=== PATIENT | male | born 1980 | race Caucasian/White ===

== ENCOUNTER 2017-12-19 21:27 | Emergency (ER) | payer BC ==
[2017-12-19 22:39] LABS: Protime INR 1.01
[2017-12-19 22:42] LABS: Absolute Lymphocytes (CBC) 3.2 K/uL (0.7-4.9); Absolute Monocytes 0.6 K/uL (0.1-1.3); Absolute Neutrophil 5.4 K/uL (1.8-8.0); Basophils % 1.7 % (0-1.3); Eosinophils % 1.8 % (0-4.4); Hematocrit 45.7 % (39.6-49.0); Lymphocytes % 33.6 % (15.3-44.8); MCH 28.4 pg (27.0-35.0); MCV 83.1 fL (80-100); MPV 10.1 fL (7.6-11.3); Monocytes % 6.3 % (3.3-12.3); RBC Red Blood Cell Count 5.49 M/uL (4.33-5.43)
[2017-12-19 22:50] LABS: Potassium 3.5 mEq/L (3.6-5.0)
[2017-12-19 22:56] LABS: Albumin 4.3 g/dL (3.2-5.5); Bilirubin Direct 0.2 mg/dL (0-0.2); Bilirubin Total 1.3 mg/dL (0.3-1.2)
[2017-12-19 22:57] LABS: CKMB Creatine Kinase MB 0.9 ng/ml (0.3-4.0)
--- NOTE | 2017-12-19 22:57 | RAD REPORT ---
EXAM DESCRIPTION: RAD - Chest Single View - 12/19/2017 10:50 pm CLINICAL HISTORY: Chest pain. COMPARISON: 11/19/2009 FINDINGS: Portable technique limits examination quality. The lungs are grossly clear. The heart is normal in size. No displaced fractures. IMPRESSION: No acute intrathoracic process suspected.
[2017-12-19 23:01] LABS: Blood Morphology Comment NOT SEEN (NOT SEEN); Platelet Estimate ADEQ; Urine White Blood Cell Casts OK
--- NOTE | 2017-12-19 23:38 | ER ---
Nurse's Notes [facility] Name: Thong Camacho Age: 37 yrs Sex: Male : 1980 Arrival Date: 12/19/2017 Time: 21:31 Bed 16 Private MD: Tico Nguyen R Diagnosis: Other chest pain Presentation: 12/19 21:34 Presenting complaint: Patient states: Episode of chest discomfort while roller skating aj tonight at 1930. Patient also reports tingling to right side of face. Transition of care: patient was not received from another setting of care. Onset of symptoms was December 19, 2017. Risk Assessment: Do you want to hurt yourself or someone else? Patient reports no desire to harm self or others. Care prior to arrival: None. 21:34 Method Of Arrival: Ambulatory 21:34 Acuity: MANUEL 3 22:39 Initial Sepsis Screen: Does the patient meet any 2 criteria? No. Patient's initial bs1 sepsis screen is negative. Does the patient have a suspected source of infection? No. Patient's initial sepsis screen is negative. Triage Assessment: 21:35 General: Appears in no apparent distress. comfortable, Behavior is calm, cooperative, aj appropriate for age. Pain: Complains of pain in chest. Neuro: Level of Consciousness is awake, alert, obeys commands, Oriented to person, place, time, situation, Appropriate for age. Cardiovascular: Reports chest pain, shortness of breath. Cardiovascular: Capillary refill < 3 seconds in bilateral fingers Patient's skin is warm and dry. Respiratory: Airway is patent Respiratory effort is even, unlabored, Respiratory pattern is regular, symmetrical. Derm: Skin is intact, is healthy with good turgor, Skin is pink, warm \T\ dry. normal. Historical: - Allergies: 21:35 tramadol; aj - Home Meds: 21:35 vancomycin oral oral [Active]; aj - PMHx: 21:35 C-diff; aj - PSHx: 21:35 Cholecystectomy; Hernia repair; aj - Immunization history:: Adult Immunizations up to date. - Social history:: Smoking status: Patient/guardian denies using tobacco. - Ebola Screening: : Patient negative for fever greater than or equal to 101.5 degrees Fahrenheit, and additional compatible Ebola Virus Disease symptoms Patient denies exposure to infectious person Patient denies travel to an Ebola-affected area in the 21 days before illness onset No symptoms or risks identified at this time. Screenin:38 Abuse screen: Denies threats or abuse. Denies injuries from another. Nutritional bs1 screening: No deficits noted. Tuberculosis screening: No symptoms or risk factors identified. Fall Risk None identified. Assessment: 22:00 General: Appears in no apparent distress. uncomfortable. Pain: Complains of pain in bs1 left side of chest Pain does not radiate. Pain currently is 8 out of 10 on a pain scale. Quality of pain is described as stabbing, Pain began suddenly. Neuro: Level of Consciousness is awake, alert, obeys commands, Oriented to person, place, time, situation, Appropriate for age Schedule Checker are equal bilaterally. Neuro: Reports dizziness, reports tingling to face. Cardiovascular: Reports chest pain, Denies shortness of breath, Heart tones S1 S2 present Capillary refill < 3 seconds Patient's skin is warm and dry. Respiratory: Airway is patent Trachea midline Respiratory effort is even, unlabored, Respiratory pattern is regular, symmetrical, Breath sounds are clear bilaterally. GI: No signs and/or symptoms were reported involving the gastrointestinal system. : No signs and/or symptoms were reported regarding the genitourinary system. EENT: No signs and/or symptoms were reported regarding the EENT system. Derm: Skin is intact, Skin is pink, warm \T\ dry. Musculoskeletal: Circulation, motion, and sensation intact. Capillary refill < 3 seconds, Range of motion: intact in all extremities. 23:30 Reassessment: Patient appears in no apparent distress at this time. Patient and/or bs1 family updated on plan of care and expected duration. Pain level reassessed. Patient is alert, oriented x 3, equal unlabored respirations, skin warm/dry/pink. No further needs, updated on POC and follow up Patient states feeling better. Patient states symptoms have improved. Vital Signs: 21:35 BP 140 / 104; Pulse 82; Resp 19; Temp 97.8; Pulse Ox 98% on R/A; Weight 90.72 kg; aj Height 5 ft. 11 in. (180.34 cm); 22:30 BP 105 / 69; Pulse 67; Resp 16; Pulse Ox 99% on R/A; bs1 23:30 BP 109 / 71; Pulse 62; Resp 16; Temp 98(O); Pulse Ox 97% on R/A; Pain 0/10; bs1 21:35 Body Mass Index 27.89 (90.72 kg, 180.34 cm) ED Course: 21:31 Patient arrived in ED. es 21:32 Tico Nguyen MD is Private Physician. es 21:35 Triage completed. aj 21:35 Arm band placed on left wrist. Patient placed in an exam room. aj 22:00 Inserted saline lock: 20 gauge in left antecubital area, using aseptic technique. bs1 Patient maintains SpO2 saturation greater than 95% on room air. 22:01 Nhung Balderrama, RN is Primary Nurse. bs1 22:18 Nikolay Chawla PA is PHCP. [facility] 22:19 Evan Campbell MD is Attending Physician. [facility] 22:38 Patient has correct armband on for positive identification. Bed in low position. Call bs1 light in reach. Side rails up X 1. traffic monitor specialist on. Pulse ox on. NIBP on. 22:44 X-ray completed. Portable x-ray completed in exam room. Patient tolerated procedure kc2 well. 22:46 XRAY Chest (1 view) In Process Unspecified. EDMS 23:37 Tico Nguyen MD is Referral Physician. [facility] 23:56 No provider procedures requiring assistance completed. IV discontinued, bleeding bs1 controlled, No redness/swelling at site. Pressure dressing applied. Administered Medications: No medications were administered Outcome: 23:37 Discharge ordered by MD. [facility] 23:56 Discharged to home ambulatory, with significant other. bs1 23:56 Condition: stable 23:56 Discharge instructions given to patient, Instructed on discharge instructions, follow up and referral plans. Demonstrated understanding of instructions, follow-up care. 23:58 Patient left the ED. bs1 Signatures: Dispatcher [employer] Lis Nam, RN Nikolay Montez PA PA jmm Salyer, Edna es Carr, Kelsie kc2 Nhung Balderrama, BARRIE RN bs1
--- NOTE | 2017-12-19 23:38 | EDPHYS ---
Physician Documentation [facility] Name: Thong Camacho Age: 37 yrs Sex: Male : 1980 Arrival Date: 12/19/2017 Time: 21:31 Bed 16 Private MD: Tico Nguyen R ED Physician Evan Campbell HPI: 12/19 22:38 This 37 yrs old Male presents to ER via Ambulatory with complaints of Chest jmm Pain, Dizziness, Face pam. 22:38 Onset: The symptoms/episode began/occurred gradually, just prior to arrival. This is a jmm 37 year old male with no chronic medical conditions that presents to the ED with chest pain beginning while roller skating. Patient denies shortness of breath. Denies hx of CAD. . Historical: - Allergies: 21:35 tramadol; aj - Home Meds: 21:35 vancomycin oral oral [Active]; aj - PMHx: 21:35 C-diff; aj - PSHx: 21:35 Cholecystectomy; Hernia repair; aj - Immunization history:: Adult Immunizations up to date. - Social history:: Smoking status: Patient/guardian denies using tobacco. - Ebola Screening: : Patient negative for fever greater than or equal to 101.5 degrees Fahrenheit, and additional compatible Ebola Virus Disease symptoms Patient denies exposure to infectious person Patient denies travel to an Ebola-affected area in the 21 days before illness onset No symptoms or risks identified at this time. ROS: 22:38 Constitutional: Negative for fever, chills, and weight loss, Respiratory: Negative for jmm shortness of breath, cough, wheezing, and pleuritic chest pain. 22:38 Abdomen/GI: Negative for abdominal pain, nausea, vomiting, diarrhea, and constipation. 22:38 Cardiovascular: Positive for chest pain. 22:38 Respiratory: Negative for shortness of breath. 22:38 Neuro: Positive for tingling. 22:38 All other systems are negative. Exam: 22:38 Head/Face: atraumatic. Cardiovascular: Regular rate and rhythm. No gallops, murmurs, jmm or rubs. Full/Equal distal pulses. Respiratory: Lungs have equal breath sounds bilaterally, clear to auscultation. No rales, rhonchi or wheezes noted. No increased work of breathing, no retractions or nasal flaring. Abdomen/GI: Soft, non-tender, with normal bowel sounds. No distension or tympany. No guarding or rebound. No evidence of tenderness throughout. 22:38 Constitutional: The patient appears in no acute distress, alert, awake. 22:38 Skin: Appearance: Color: normal in color. 22:38 Neuro: Orientation: is normal, Mentation: is normal, Memory: is normal, Gait: is steady. Vital Signs: 21:35 BP 140 / 104; Pulse 82; Resp 19; Temp 97.8; Pulse Ox 98% on R/A; Weight 90.72 kg; aj Height 5 ft. 11 in. (180.34 cm); 22:30 BP 105 / 69; Pulse 67; Resp 16; Pulse Ox 99% on R/A; bs1 23:30 BP 109 / 71; Pulse 62; Resp 16; Temp 98(O); Pulse Ox 97% on R/A; Pain 0/10; bs1 21:35 Body Mass Index 27.89 (90.72 kg, 180.34 cm) MDM: 22:28 Patient medically screened. [facility] 23:12 Data reviewed: vital signs, nurses notes, lab test result(s), EKG, radiologic studies, [facility] plain films. 23:12 Differential diagnosis: CHEST WALL PAIN, ACS, PE. ED course: HEART SCORE = 0. ED jmm course: PERC NEGATIVE. 12/19 22:17 Order name: Basic Metabolic Panel; Complete Time: 22:59 bs1 12/19 22:17 Order name: BNP; Complete Time: 23:12 bs1 12/19 22:17 Order name: CBC with Diff; Complete Time: 23:02 bs1 12/19 22:17 Order name: Ckmb; Complete Time: 22:59 bs1 12/19 22:17 Order name: CPK; Complete Time: 22:59 bs1 12/19 22:17 Order name: LFT's; Complete Time: 22:59 bs1 12/19 22:17 Order name: Magnesium; Complete Time: 22:59 bs1 12/19 22:17 Order name: PT-INR; Complete Time: 22:59 bs1 12/19 22:17 Order name: Ptt, Activated; Complete Time: 22:59 bs1 12/19 22:17 Order name: Troponin (emerg Dept Use Only); Complete Time: 22:59 bs1 12/19 22:17 Order name: XRAY Chest (1 view); Complete Time: 22:59 bs1 12/19 22:17 Order name: EKG; Complete Time: 22:17 bs1 12/19 22:17 Order name: Cardiac monitoring; Complete Time: 22:19 bs1 12/19 23:01 Order name: CBC Smear Scan; Complete Time: 23:02 EDNJ 12/19 22:17 Order name: EKG - Nurse/Tech; Complete Time: 22:18 bs1 12/19 22:17 Order name: IV Saline Lock; Complete Time: 22:18 bs1 12/19 22:17 Order name: Labs collected and sent; Complete Time: 22:19 bs1 12/19 22:17 Order name: O2 Per Protocol; Complete Time: 22:18 bs1 12/19 22:17 Order name: O2 Sat Monitoring; Complete Time: 22:18 bs1 Administered Medications: No medications were administered Disposition: 12/20 06:37 Co-signature as Attending Physician, Evan Campbell MD I agree with the assessment and therese plan of care. Disposition: 12/19/17 23:37 Discharged to Home. Impression: Other chest pain. - Condition is Stable. - Discharge Instructions: Nonspecific Chest Pain. - Medication Reconciliation Form, Thank You Letter, Antibiotic Education, Prescription Opioid Use form. - Follow up: Tico Nguyen MD; When: 1 - 2 days; Reason: Re-evaluation by your physician. - Notes: Please follow up with your auditor in charge for further evaluation of your chest pain. Please return to the ED if you develop worsening pain, develop shortness of breath or have any other concerning symptoms. Signatures: Dispatcher [employer] EDLis Alexandre, Evan Onofre RN, MD MD cha Mickail, Joel, PA PA Nhung Benito, RN RN bs1 Corrections: (The following items were deleted from the chart) 12/19 23:58 23:37 12/19/2017 23:37 Discharged to Home. Impression: Other chest pain. Condition is bs1 Stable. Forms are Medication Reconciliation Form, Thank You Letter, Antibiotic Education, Prescription Opioid Use. Follow up: Tico Nguyen; When: 1 - 2 days; Reason: Re-evaluation by your physician. jmm
[2017-12-20 00:36] VITALS: BP 109/71; TEMP 98; O2SAT 97
--- NOTE | 2017-12-20 07:20 | EKG ---
Test Date: 2017-12-19 Test Time: 21:49:06 Speedboat Driver: GLORIA MEASUREMENT RESULTS: Intervals: Rate: 68 AK: 156 QRSD: 78 QT: 360 QTc: 382 Patterson: P: 56 AK: 156 QRS: 19 T: 37 INTERPRETIVE STATEMENTS: Normal sinus rhythm Normal ECG Compared to ECG 08/09/2009 02:44:18 Sinus bradycardia no longer present Electronically Signed On 12-20-17 07:19:37 CDT by Augustin Pierce
== END 2017-12-19 23:58 | disposition home or self-care (01) ==
LOC: ER 21:27
DX: R07.89 Other chest pain (principal); Z88.6 Allergy status to analgesic agent
CPT/HCPCS: 36415; 71045; 80048; 80076; 82550; 82553; 83735; 83880; 84484; 85025; 85610; 85730; 93005; 99284

== ENCOUNTER 2019-07-09 09:21 | Emergency (ER) | payer BC ==
--- NOTE | 2019-07-09 10:42 | RAD REPORT ---
EXAM DESCRIPTION: RAD - Shoulder Right 2 View - 07/09/2019 10:14 am CLINICAL HISTORY: PAIN COMPARISON: No comparisons FINDINGS: No bone or joint abnormality is detected.
--- NOTE | 2019-07-09 10:59 | ER ---
Nurse's Notes [facility] Name: Thong Camacho Age: 38 yrs Sex: Male : 1980 Arrival Date: 07/09/2019 Time: 09:23 Bed 17 Private MD: Tico Nguyen R Diagnosis: Pain in right shoulder Presentation: 07/09 09:35 Presenting complaint: Patient states: feels like he pulled a muscle or dislocated his iw right shoulder since Saturday, denies any specific injury , not has decreased ROm in shoulder. Transition of care: patient was not received from another setting of care. Onset of symptoms was July 06, 2019. Risk Assessment: Do you want to hurt yourself or someone else? Patient reports no desire to harm self or others. Initial Sepsis Screen: Does the patient meet any 2 criteria? No. Patient's initial sepsis screen is negative. Does the patient have a suspected source of infection? No. Patient's initial sepsis screen is negative. Care prior to arrival: None. 09:35 Method Of Arrival: Ambulatory iw 09:35 Acuity: MANUEL 4 iw Historical: - Allergies: 09:36 tramadol; iw - Home Meds: 09:36 None [Active]; iw - PMHx: 09:36 C-diff; iw - PSHx: 09:36 Cholecystectomy; Hernia repair; iw - Immunization history:: Adult Immunizations not up to date. - Social history:: Smoking status: Patient/guardian denies using tobacco. - Ebola Screening: : Patient negative for fever greater than or equal to 101.5 degrees Fahrenheit, and additional compatible Ebola Virus Disease symptoms Patient denies exposure to infectious person Patient denies travel to an Ebola-affected area in the 21 days before illness onset No symptoms or risks identified at this time. Screenin:17 Abuse screen: Denies threats or abuse. Nutritional screening: No deficits noted. em Tuberculosis screening: No symptoms or risk factors identified. Fall Risk None identified. Assessment: 10:08 General: Appears in no apparent distress. comfortable, Behavior is calm, cooperative. em Pain: Complains of pain in right shoulder Pain currently is 6 out of 10 on a pain scale. Neuro: Level of Consciousness is awake, alert, obeys commands, Oriented to person, place, time, situation, Appropriate for age. Cardiovascular: Capillary refill < 3 seconds Patient's skin is warm and dry. Respiratory: Airway is patent Respiratory effort is even, unlabored, Respiratory pattern is regular, symmetrical. Derm: Skin is intact, is healthy with good turgor, Skin is pink, warm \T\ dry. Musculoskeletal: Capillary refill < 3 seconds, Range of motion: limited in right shoulder. Vital Signs: 09:36 BP 115 / 90; Pulse 69; Resp 16 S; Temp 97.6; Pulse Ox 97% on R/A; Weight 92.53 kg; iw Height 5 ft. 11 in. (180.34 cm); Pain 6/10; 09:36 Body Mass Index 28.45 (92.53 kg, 180.34 cm) iw ED Course: 09:23 Patient arrived in ED. rg4 09:23 Tico Nguyen MD is Private Physician. rg4 09:36 Triage completed. iw 09:38 Raúl Fish FNP-C is [facility]. la1 09:38 Lionel Garland MD is Attending Physician. la1 09:44 Brianna Sommer, BARRIE is Primary Nurse. iw 10:15 Shoulder Right (2 View) XRAY In Process Unspecified. EDMS 10:17 Patient has correct armband on for positive identification. Bed in low position. Call em light in reach. 10:18 Arm band placed on. em 11:05 Sling applied to right arm. ms 11:12 No provider procedures requiring assistance completed. Patient did not have IV access em during this emergency room visit. Administered Medications: No medications were administered Outcome: 10:59 Discharge ordered by . la1 11:12 Discharged to home ambulatory. em 11:12 Condition: good 11:12 Discharge instructions given to patient, Instructed on discharge instructions, follow up and referral plans. Demonstrated understanding of instructions, follow-up care. 11:14 Patient left the ED. em Signatures: Dispatcher [employer] EDMS Yordan Louis, GREENBELT GREENBELT em Brianna Sommer, BARRIE RN Lina Souza ms Raúl Fish FNP-C ELICEO-Amber Howell rg4
--- NOTE | 2019-07-09 11:00 | EDPHYS ---
Physician Documentation [facility] Name: Thong Camacho Age: 38 yrs Sex: Male : 1980 Arrival Date: 07/09/2019 Time: 09:23 Bed 17 Private MD: Tico Nguyen R ED Physician Lionel Garland HPI: 07/09 10:04 This 38 yrs old Male presents to ER via Ambulatory with complaints of la1 Shoulder Pain. 10:04 The patient or guardian complains of pain, that is acute. right shoulder. Context: The la1 problem was sustained at work, resulted from lifting or carrying, a heavy object, The patient experiences decreased range of motion, when attempts to raise arm, The patient reports no obvious deformity. Onset: The symptoms/episode began/occurred 4 day(s) ago. Modifying factors: the symptoms are alleviated by remaining still, The symptoms are aggravated by movement. Associated signs and symptoms: Pertinent negatives: chest pain, diaphoresis, dyspnea, Numbness in right arm tingling, Weakness in right arm. Severity of symptoms: At their worst the symptoms were mild. The patient has not experienced similar symptoms in the past. The patient has not recently seen a physician. RIGHT SHOULDER PAIN SINCE SATURDAY AFTER LIFTING HEAVY OBJECTS, PAIN WITH SHOULDER ABDUCTION WITH RESISTANCE.. Historical: - Allergies: 09:36 tramadol; iw - Home Meds: 09:36 None [Active]; iw - PMHx: 09:36 C-diff; iw - PSHx: 09:36 Cholecystectomy; Hernia repair; iw - Immunization history:: Adult Immunizations not up to date. - Social history:: Smoking status: Patient/guardian denies using tobacco. - Ebola Screening: : Patient negative for fever greater than or equal to 101.5 degrees Fahrenheit, and additional compatible Ebola Virus Disease symptoms Patient denies exposure to infectious person Patient denies travel to an Ebola-affected area in the 21 days before illness onset No symptoms or risks identified at this time. ROS: 10:06 Constitutional: Negative for fever, chills, and weight loss, Eyes: Negative for injury, la1 pain, redness, and discharge, ENT: Negative for injury, pain, and discharge, Neck: Negative for injury, pain, and swelling, Cardiovascular: Negative for chest pain, palpitations, and edema, Respiratory: Negative for shortness of breath, cough, wheezing, and pleuritic chest pain, Abdomen/GI: Negative for abdominal pain, nausea, vomiting, diarrhea, and constipation, Back: Negative for injury and pain. 10:06 Neuro: Negative for headache, weakness, numbness, tingling, and seizure. 10:06 MS/extremity: Positive for pain, pain with ROM of right shoulder. Exam: 10:07 Constitutional: This is a well developed, well nourished patient who is awake, alert, la1 and in no acute distress. Head/Face: Normocephalic, atraumatic. Eyes: Pupils equal round and reactive to light, extra-ocular motions intact. Periorbital areas with no swelling, redness, or edema. ENT: Mucous membranes moist. Neck: . No Meningismus. Chest/axilla: Normal chest wall appearance and motion. Nontender with no deformity. No lesions are appreciated. 10:07 Musculoskeletal/extremity: ROM: limited active range of motion due to pain, limited passive range of motion due to pain, in the right arm and right shoulder, Sensation intact. Joints: All joints are normal except the right shoulder displays painful range of motion. Vital Signs: 09:36 BP 115 / 90; Pulse 69; Resp 16 S; Temp 97.6; Pulse Ox 97% on R/A; Weight 92.53 kg; iw Height 5 ft. 11 in. (180.34 cm); Pain 6/10; 09:36 Body Mass Index 28.45 (92.53 kg, 180.34 cm) iw MDM: 09:38 Patient medically screened. la1 10:57 Data reviewed: vital signs, nurses notes, radiologic studies, and as a result, I will la1 discharge patient. Data interpreted: Pulse oximetry: on room air is 97 %. Interpretation: normal. Counseling: I had a detailed discussion with the patient and/or guardian regarding: the historical points, exam findings, and any diagnostic results supporting the discharge/admit diagnosis, radiology results, the need for outpatient follow up, a orthopedic surgeon. ED course: Discussed need for FU with ortho, will place in sling for comfort but recommend ROM exercises throughout the day.. 07/09 09:52 Order name: Shoulder Right (2 View) XRAY; Complete Time: 10:49 em 07/09 10:54 Order name: Sling; Complete Time: 11:05 la1 Administered Medications: No medications were administered Disposition: 17:34 Co-signature as Attending Physician, Lionel Garland MD. rn Disposition: 07/09/19 10:59 Discharged to Home. Impression: Pain in right shoulder. - Condition is Stable. - Discharge Instructions: Joint Pain, Musculoskeletal Pain, Shoulder Pain, Shoulder Range of Motion Exercises, Shoulder Pain, [id number]. - Medication Reconciliation Form, Thank You Letter form. - Follow up: Private Physician; When: 2 - 3 days; Reason: Recheck today's complaints, Re-evaluation by your physician. - Problem is new. - Symptoms have improved. Signatures: Dispatcher [employer] Yordan Barnes, MAINTENANCE PERSON MAINTENANCE PERSON em Brianna Sommer RN RN iw Nieto, Roman, MD MD rn Attema, Lee, PAINT ROLLER COVERMAKER-C PAINT ROLLER COVERMAKER-Cla1 Corrections: (The following items were deleted from the chart) 11:14 10:59 07/09/2019 10:59 Discharged to Home. Impression: Pain in right shoulder. em Condition is Stable. Forms are Medication Reconciliation Form, Thank You Letter, Antibiotic Education, Prescription Opioid Use. Follow up: Private Physician; When: 2 - 3 days; Reason: Recheck today's complaints, Re-evaluation by your physician. Problem is new. Symptoms have improved. la1
[2019-07-09 11:20] VITALS: BP 115/90; TEMP 97.6; O2SAT 97
== END 2019-07-09 11:14 | disposition home or self-care (01) ==
LOC: ER 09:21
DX: M25.511 Pain in right shoulder (principal); Z88.5 Allergy status to narcotic agent
CPT/HCPCS: 99283

== ENCOUNTER 2022-07-31 18:35 | Emergency (ER) | payer BC ==
[2022-07-31 19:47] LABS: Absolute Lymphocytes (CBC) 3.2 K/uL (0.7-4.9); Hematocrit 45.3 % (39.6-49.0); Lymphocytes % 33.7 % (15.3-44.8); MCV 82.6 fL (80-100); MPV 8.8 fL (7.6-11.3); RBC Red Blood Cell Count 5.49 M/uL (4.33-5.43)
[2022-07-31 19:50] LABS: Protime INR 1.04
[2022-07-31] MEDS ORDERED: NA CHLORIDE 0.9% 1,000 ML ONE (20:08)
[2022-07-31 20:11] LABS: Bilirubin Direct 0.2 mg/dL (0-0.2); Bilirubin Total 1.1 mg/dL (0.2-1.0); Protein, Total 6.8 g/dL (6.4-8.2)
[2022-07-31 20:14] LABS: Magnesium 2.1 mg/dL (1.6-2.4); Potassium 3.5 mmol/L (3.5-5.1)
[2022-07-31 20:17] LABS: Urine Blood Negative (Negative); Urine Glucose Negative (Negative); Urine Protein Negative (Negative)
[2022-07-31 20:28] LABS: SARS-COV-2 RT PCR NEGATIVE (NEGATIVE)
--- NOTE | 2022-07-31 20:39 | RAD REPORT ---
EXAM DESCRIPTION: RAD - Chest Single View - 07/31/2022 8:11 pm CLINICAL HISTORY: CHEST PAIN COMPARISON: Chest Single View dated 12/19/2017; CHEST PA AND LAT 2 VIEW dated 11/19/2009; CHEST PA AND L AT 2 VIEW dated 08/09/2009 FINDINGS: Lines: None. Lungs: No evidence of edema or pneumonia. Pleural: No significant pleural effusions or pneumothorax. Cardiac: The heart size is within normal limits. Mediastinum: Within normal limits. Bones: No acute fractures. Other: None IMPRESSION: No acute cardiopulmonary disease.
--- NOTE | 2022-07-31 21:25 | EDPHYS ---
Physician Documentation [facility] Name: Thong Camacho Age: 41 yrs Sex: Male : 1980 Arrival Date: 07/31/2022 Time: 18:36 Bed 3 Private MD: ED Physician Lionel Garland HPI: 07/31 19:20 This 41 yrs old Male presents to ER via Ambulatory with complaints of Near Syncope, rn chest pain, tingling all over. 19:20 The patient has experienced near-syncope. Onset: The symptoms/episode began/occurred rn just prior to arrival. Duration: This was a single episode. Associated injury: The patient did not suffer any apparent associated injury. Current symptoms: tingling in hands, chest pain. The patient has not experienced similar symptoms in the past. The patient has not recently seen a physician. Pt reports working on his bike earlier, felt lightheaded, tingling in arms, chest pressure, no syncope but felt like was going to pass out. No fever. No sob. No abd pain. No vomiting/diarrhea. No blood in stool. . Historical: - Allergies: 18:52 tramadol; aa5 - PMHx: 18:52 C-diff; aa5 19:03 Anxiety; aa5 - PSHx: 18:52 hernia; Cholecystectomy; Left arm reconstruction; aa5 - Immunization history:: Adult Immunizations unknown. - Social history:: Smoking status: Patient denies any tobacco usage or history of. - Family history:: not pertinent. - Hospitalizations: : No recent hospitalization is reported. ROS: 19:20 Constitutional: Negative for fever, chills, and weight loss, Eyes: Negative for injury, rn pain, redness, and discharge, Neck: Negative for injury, pain, and swelling, Cardiovascular: Negative for edema Respiratory: Negative for shortness of breath, cough, wheezing, and pleuritic chest pain, Abdomen/GI: Negative for abdominal pain, nausea, vomiting, diarrhea, and constipation, Back: Negative for injury and pain, MS/Extremity: Negative for injury and deformity, Skin: Negative for injury, rash, and discoloration, Neuro: Negative for headache, and seizure. Exam: 19:20 Constitutional: This is a well developed, well nourished patient who is awake, alert, rn and in no acute distress. Seems anxious. Head/Face: Normocephalic, atraumatic. ENT: MMM Cardiovascular: Regular rate and rhythm. No pulse deficits. Respiratory: No increased work of breathing, no retractions or nasal flaring. Abdomen/GI: soft, non-tender, no masses Skin: Warm, dry MS/ Extremity: Pulses equal, no cyanosis. Neuro: Awake and alert, GCS 15, oriented to person, place, time, and situation. Cranial nerves II-XII grossly intact. Motor strength 5/5 in all extremities. Sensory grossly intact. Cerebellar exam normal. Normal gait. 20:17 ECG was reviewed by the Attending Physician. rn Vital Signs: 18:53 BP 133 / 96; Pulse 81; Resp 16 S; Temp 97.8(TE); Pulse Ox 98% on R/A; Weight 92.99 kg aa5 (R); Height 5 ft. 11 in. (180.34 cm) (R); 20:11 BP 122 / 75 Supine; Pulse 65; Resp 18; Pulse Ox 100% on R/A; tw5 20:14 BP 133 / 83 Sitting; Pulse 74; Resp 18; Pulse Ox 96% on R/A; tw5 20:14 BP 129 / 90 Standing; Pulse 78; Resp 18; tw5 21:31 BP 125 / 89; Pulse 75; Resp 16; Pulse Ox 100% on R/A; kd3 18:53 Body Mass Index 28.59 (92.99 kg, 180.34 cm) aa5 MDM: 19:01 Patient medically screened. rn 21:22 Differential Diagnosis: cardiac arrhythmia, emotional response, GI bleed, idiopathic rn syncope, vasovagal episode, anxiety, panic attack, vertigo. Data reviewed: vital signs, nurses notes, lab test result(s), EKG, radiologic studies, plain films, and as a result, I will discharge patient. Counseling: I had a detailed discussion with the patient and/or guardian regarding: the historical points, exam findings, and any diagnostic results supporting the discharge/admit diagnosis, lab results, radiology results, the need for outpatient follow up, to return to the emergency department if symptoms worsen or persist or if there are any questions or concerns that arise at home. Special discussion: I discussed with the patient/guardian in detail that at this point there is no indication for admission to the hospital. It is understood, however, that if the symptoms persist or worsen the patient needs to return immediately for re-evaluation. Based on the history and exam findings, there is no indication for further emergent testing or inpatient evaluation. I discussed with the patient/guardian the need to see the neurologist for further evaluation of the symptoms. I discussed with the patient/guardian the need to see the primary care provider for further evaluation of the symptoms. ED course: Pt improved, no acute findings on workup. Pt describes more of episodic dizziness and more of vertiginous symptoms. Stable vitals. No acute findings on workup. Will dc home with return precautions and neuro/pcp f/u. . 07/31 19:08 Order name: Basic Metabolic Panel; Complete Time: 21:10 07/31 21:22 Interpretation: Normal except: GLUC 150. 07/31 19:08 Order name: CBC with Diff; Complete Time: 20:06 07/31 21:22 Interpretation: Within normal limits. 07/31 19:08 Order name: Hepatic Function; Complete Time: 21:10 07/31 21:22 Interpretation: Normal except: BILIT 1.1. rn 07/31 19:08 Order name: Magnesium; Complete Time: 21:10 07/31 19:08 Order name: Protime (+inr); Complete Time: 20:06 07/31 19:08 Order name: Ptt, Activated; Complete Time: 20:06 07/31 19:02 Order name: EKG - Nurse/Tech; Complete Time: 19:02 aa5 07/31 19:08 Order name: Troponin High Sensitivity; Complete Time: 21:10 07/31 21:22 Interpretation: Within normal limits. rn 07/31 19:08 Order name: Chest Single View XRAY; Complete Time: 21:10 07/31 21:22 Interpretation: No acute disease. rn 07/31 19:08 Order name: EKG; Complete Time: 19:09 rn 07/31 19:08 Order name: COVID-19/FLU A+B; Complete Time: 21:10 07/31 19:09 Order name: D-Dimer; Complete Time: 20:06 07/31 20:17 Order name: Urine Dipstick-Ancillary; Complete Time: 21:10 EDMS 07/31 19:08 Order name: Cardiac monitoring; Complete Time: 20:11 rn 07/31 19:08 Order name: IV Saline Lock; Complete Time: : rn 07/31 19:08 Order name: Labs collected and sent; Complete Time: rn 07/31 19:08 Order name: O2 Per Protocol; Complete Time: rn 07/31 19:08 Order name: O2 Sat Monitoring; Complete Time: rn 07/31 19:08 Order name: Orthostatics; Complete Time: rn 07/31 19:08 Order name: Urine Dipstick-Ancillary (obtain specimen); Complete Time: 20:24 rn EC:17 Rate is 72 beats/min. Rhythm is regular. QRS Mcguffey is Normal. UT interval is normal. QRS rn interval is normal. QT interval is normal. No Q waves. T waves are Normal. No ST changes noted. Clinical impression: Normal ECG. Interpreted by me. Reviewed by me. Administered Medications: :10 Drug: NS 0.9% 1000 ml Route: IV; Rate: 1000 ml; Site: left antecubital; tw5 21:32 Follow up: IV Status: Completed infusion; IV Intake: 1000ml kd3 Disposition Summary: 07/31/22 21:24 Discharge Ordered Location: Home rn Problem: new rn Symptoms: have improved rn Condition: Stable rn Diagnosis - Dizziness and giddiness rn - Near syncope rn Followup: rn - With: Yann Rico MD - When: As needed - Reason: Recheck today's complaints, Re-evaluation by your physician Discharge Instructions: - Discharge Summary Sheet rn - Dizziness rn - Near-Syncope rn - Vertigo rn Forms: - Medication Reconciliation Form rn - Thank You Letter rn - Antibiotic apple turner - Prescription Opioid Use rn Signatures: Dispatcher [employer] Lionel Levin MD MD rn Calderon, Audri RN RN Ginger Trammell tw5 Simran Tee RN kd3
--- NOTE | 2022-07-31 21:25 | ER ---
Nurse's Notes [facility] Name: Thong Camacho Age: 41 yrs Sex: Male : 1980 Arrival Date: 07/31/2022 Time: 18:36 Bed 3 Private MD: Diagnosis: Dizziness and giddiness;Near syncope Presentation: 07/31 18:53 Chief complaint: Patient states: "I was working on my bike and when I got up I was aa5 seeing floaters and felt like passing out and it's happened a few times already". Pt reports chest pressure and precious arms tingling. Coronavirus screen: At this time, the client does not indicate any symptoms associated with coronavirus-19. Ebola Screen: Patient denies travel to an Ebola-affected area in the 21 days before illness onset. Initial Sepsis Screen: Does the patient meet any 2 criteria? No. Patient's initial sepsis screen is negative. Does the patient have a suspected source of infection? No. Patient's initial sepsis screen is negative. Risk Assessment: Do you want to hurt yourself or someone else? Patient reports no desire to harm self or others. Onset of symptoms was July 2022. 18:53 Acuity: MANUEL 3 aa5 18:53 Method Of Arrival: Ambulatory aa5 Triage Assessment: 21:31 General: Appears in no apparent distress. Behavior is calm, cooperative. Neuro: Level kd3 of Consciousness is awake, alert, obeys commands, Oriented to person, place, time, situation. Respiratory: Airway is patent Trachea midline Respiratory effort is even, unlabored, Respiratory pattern is regular, symmetrical. Historical: - Allergies: 18:52 tramadol; aa5 - PMHx: 18:52 C-diff; aa5 19:03 Anxiety; aa5 - PSHx: 18:52 hernia; Cholecystectomy; Left arm reconstruction; aa5 - Immunization history:: Adult Immunizations unknown. - Social history:: Smoking status: Patient denies any tobacco usage or history of. - Family history:: not pertinent. - Hospitalizations: : No recent hospitalization is reported. Screenin:11 [facility] ED Fall Risk Assessment (Adult) History of falling in the last 3 months, tw5 including since admission. Abuse screen: Denies threats or abuse. Denies injuries from another. Nutritional screening: No deficits noted. Tuberculosis screening: No symptoms or risk factors identified. Assessment: 20:11 General: Reports "I was feeling tingling in both my arms. I have felt that way before, tw5 but that was from anxiety. I have never felt like I wanted to pass out thought". Pain: Denies pain. Neuro: No deficits noted. Level of Consciousness is awake, alert, obeys commands. Cardiovascular: Capillary refill Rhythm is regular. Respiratory: No deficits noted. GI: No deficits noted. : Urine is clear. Vital Signs: 18:53 BP 133 / 96; Pulse 81; Resp 16 S; Temp 97.8(TE); Pulse Ox 98% on R/A; Weight 92.99 kg aa5 (R); Height 5 ft. 11 in. (180.34 cm) (R); 20:11 BP 122 / 75 Supine; Pulse 65; Resp 18; Pulse Ox 100% on R/A; tw5 20:14 BP 133 / 83 Sitting; Pulse 74; Resp 18; Pulse Ox 96% on R/A; tw5 20:14 BP 129 / 90 Standing; Pulse 78; Resp 18; tw5 21:31 BP 125 / 89; Pulse 75; Resp 16; Pulse Ox 100% on R/A; kd3 18:53 Body Mass Index 28.59 (92.99 kg, 180.34 cm) aa5 ED Course: 18:36 Patient arrived in ED. am2 18:52 Arm band placed on. aa5 18:54 Triage completed. aa5 19:00 EKG completed in triage. Results shown to MD. aa5 19:01 Lionel Garland MD is Attending Physician. rn 20:04 Ginger Ascencio is Primary Nurse. tw5 20:11 Patient has correct armband on for positive identification. Placed in gown. Bed in low tw5 position. Call light in reach. Side rails up X 1. Adult w/ patient. Client placed on continuous cardiac and pulse oximetry monitoring. NIBP monitoring applied. Door closed. Noise minimized. Lights dimmed. Warm blanket given. Verbal reassurance given. 20:11 Initial lab(s) drawn, by ED staff, sent to lab. Inserted saline lock: 20 gauge in left tw5 antecubital area, using aseptic technique. Blood collected. 20:13 Chest Single View XRAY In Process Unspecified. EDMS 21:24 Yann Rico MD is Referral Physician. rn 21:32 No provider procedures requiring assistance completed. IV discontinued, intact, kd3 bleeding controlled, No redness/swelling at site. Pressure dressing applied. Administered Medications: 20:10 Drug: NS 0.9% 1000 ml Route: IV; Rate: 1000 ml; Site: left antecubital; tw5 21:32 Follow up: IV Status: Completed infusion; IV Intake: 1000ml kd3 Medication: 20:14 VIS not applicable for this client. tw5 Intake: 21:32 IV: 1000ml; Total: 1000ml. kd3 Outcome: 21:24 Discharge ordered by . rn 21:32 Discharged to home ambulatory. kd3 21:32 Condition: stable 21:32 Discharge instructions given to patient, Instructed on discharge instructions, follow up and referral plans. Demonstrated understanding of instructions, follow-up care. 21:35 Patient left the ED. kd3 Signatures: Dispatcher [employer] EDHI Lionel Garland MD MD rn Calderon, Audri RN RN aa5 Lis Solano [facility] Ginger Ascencio tw5 Simran Tee RN RN kd3 Corrections: (The following items were deleted from the chart) 20:10 20:10 NS 0.9% 1000 ml IV at 1000 ml in right antecubital tw5 tw5
[2022-07-31 22:18] VITALS: TEMP 97.8
[2022-07-31 22:22] VITALS: BP 125/89; O2SAT 100
== END 2022-07-31 21:35 | disposition home or self-care (01) ==
LOC: ER 18:35
DX: R55 Syncope and collapse (principal); R42 Dizziness and giddiness; F41.9 Anxiety disorder, unspecified; Z20.822 Contact with and (suspected) exposure to COVID-19; Z88.5 Allergy status to narcotic agent
CPT/HCPCS: 85025; 80048; 36415; 83735; 85610; 85379; 80076; 85730; 81003; 84484; 0240U; 71045; J7030

== ENCOUNTER 2024-10-06 13:01 | Emergency (ER) | payer BC ==
[2024-10-06 14:36] LABS: Absolute Basophils 0.1 K/uL (0-0.5); Absolute Eosinophils 0.2 K/uL (0-0.5); Absolute Lymphocytes (CBC) 2.4 K/uL (0.7-4.9); Absolute Monocytes 0.8 K/uL (0.1-1.3); Absolute Neutrophil 6.2 K/uL (1.8-8.0); Basophils % 0.8 % (0-1.3); Eosinophils % 1.7 % (0-4.4); Hematocrit 47.8 % (39.6-49.0); Hemoglobin 16.5 g/dL (13.6-17.9); Lymphocytes % 24.8 % (15.3-44.8); MCH 28.6 pg (27.0-35.0); MCHC 34.5 g/dL (32.0-36.0); MCV 82.9 fL (80-100); MPV 9.1 fL (7.6-11.3); Neutrophils % 64.7 % (41.7-73.7); Nucleated Red Blood Cells % 0.2 % (0-0); Platelets 226 thou/uL (152-406); RBC Red Blood Cell Count 5.77 M/uL (4.33-5.43); Red Cell Distribution Width 13.9 % (12.1-15.2)
[2024-10-06] MEDS ORDERED: DIPHENHYDRAMINE 50 MG/ML VIAL ONE (14:46)
[2024-10-06] MEDS ORDERED: METOCLOPRAMIDE 10 MG/2mL INJ ONE (14:47)
[2024-10-06 14:55] LABS: Anion Gap 7.7 mEq/L (5.0-15.0); Potassium 3.7 mEq/L (3.5-5.1); Troponin High Sensitivity 3.9 pg/mL (<58.9)
--- NOTE | 2024-10-06 15:28 | ER ---
Nurse's Notes [facility] Name: Thong Camacho Age: 43 yrs Sex: Male : 1980 Arrival Date: 10/06/2024 Time: 13:01 Bed 26 Private MD: Diagnosis: Dizziness and giddiness;Nausea Presentation: 10/06 13:18 Chief complaint: Patient states: c/o dizziness with nausea, high blood pressure for me1 about a week. Dizziness and nausea are worse today. Coronavirus screen: Vaccine status: Patient reports being unvaccinated. Ebola Screen: No symptoms or risks identified at this time. Initial Sepsis Screen: Does the patient meet any 2 criteria? No. Patient's initial sepsis screen is negative. Does the patient have a suspected source of infection? No. Patient's initial sepsis screen is negative. Risk Assessment: Do you want to hurt yourself or someone else? Patient reports no desire to harm self or others. Onset of symptoms was September 29, 2024. 13:18 Method Of Arrival: Ambulatory mi1 13:18 Acuity: MANUEL 3 me1 Historical: - Allergies: 13:20 tramadol; me1 - PMHx: 13:20 Anxiety; C-diff; me1 - PSHx: 13:20 Cholecystectomy; Left arm reconstruction; hernia; me1 - Immunization history:: Adult Immunizations up to date. - Infectious Disease History:: Denies. - Social history:: Smoking status: Patient denies any tobacco usage or history of. Screenin:29 [facility] ED Fall Risk Assessment (Adult) History of falling in the last 3 months, iw including since admission No falls in past 3 months (0 pts) Confusion or Disorientation No (0 pts) Intoxicated or Sedated No (0 pts) Impaired Gait No (0 pts) Mobility Assist Device Used No (0 pt) Altered Elimination No (0 pt) Score/Fall Risk Level 0 - 2 = Low Risk Oriented to surroundings, Maintained a safe environment. Abuse screen: Denies threats or abuse. Denies injuries from another. Nutritional screening: No deficits noted. Tuberculosis screening: No symptoms or risk factors identified. Assessment: 14:28 General: Appears in no apparent distress. Behavior is calm, cooperative. Pain:. Neuro: iw Level of Consciousness is awake, alert, obeys commands, Oriented to person, place, time, situation, Moves all extremities. Full function Reports dizziness. Cardiovascular: Patient's skin is warm and dry. Respiratory: Reports Respiratory effort is even, unlabored, Respiratory pattern is regular. Derm: Skin is intact, is healthy with good turgor. Musculoskeletal: Range of motion: intact in all extremities. Vital Signs: 13:18 BP 130 / 93; Pulse 86; Resp 17; Temp 98.4; Pulse Ox 97% ; Weight 99.79 kg; Height 5 ft. me1 11 in. ; Pain 0/10; 15:47 BP 117 / 85; Pulse 66; Resp 16; Pulse Ox 98% on R/A; iw 13:18 Body Mass Index 30.68 (99.79 kg, 180.34 cm) me1 13:18 Pain Scale: Adult me1 ED Course: 13:02 Patient arrived in ED. al6 13:09 Lefty Olson MD is Attending Physician. ec2 13:20 Triage completed. me1 13:20 Arm band placed on Patient placed in waiting room. me1 14:05 Brianna Sommer, RN is Primary Nurse. iw 14:30 Basic Metabolic Panel Sent. bc6 14:31 CBC with Diff Sent. bc6 14:31 Troponin HS Sent. bc6 14:31 Initial lab(s) drawn, by me, sent to lab. EKG done, by ED staff, reviewed by Lefty Olson MD. Inserted saline lock: 20 gauge in right antecubital area, using aseptic technique. Blood collected. Flushed with 10 mL NS. 15:47 No provider procedures requiring assistance completed. IV discontinued, intact, iw bleeding controlled, No redness/swelling at site. Pressure dressing applied. Administered Medications: 14:56 Drug: metoCLOPramide IVP 10 mg IVP once; over 1 to 2 minutes Route: IVP; Site: right iw antecubital; 14:57 Drug: diphenhydrAMINE IVP 25 mg IVP once Route: IVP; Site: right antecubital; iw Medication: 14:29 VIS not applicable for this client. iw Outcome: 15:27 Discharge ordered by MD. ec2 15:47 Discharged to home ambulatory, with family, iw 15:47 Condition: good 15:47 Discharge instructions given to patient, family, Instructed on discharge instructions, follow up and referral plans. medication usage, Demonstrated understanding of instructions, follow-up care, medications, Prescriptions given X 1, 15:48 Patient left the ED. iw Signatures: Brianna Sommer RN RN iw [place], Breana 6 Afshan Maldonado RN RN me1 Lefty Olson MD MD ec2 Dorie Orta al6
--- NOTE | 2024-10-06 15:28 | EDPHYS ---
Physician Documentation [facility] Name: Thong Camacho Age: 43 yrs Sex: Male : 1980 Arrival Date: 10/06/2024 Time: 13:01 Bed 26 Private MD: ED Physician Lefty Olson HPI: 10/06 13:31 This 43 yrs old Male presents to ER via Ambulatory with complaints of ec2 Dizziness, High Blood Pressure. 13:31 Patient arrives today for multiple weeks of dizziness as well as nausea. Reports he is ec2 also noted some elevated blood pressure. Patient reports no chest pain, no difficulty breathing, no abdominal pain, does report occasional nausea without vomiting, no diarrheal issues. Patient reports that no specific alleviating or exacerbating factors. Denies any chronic medical problems, denies any daily medications.. Historical: - Allergies: 13:20 tramadol; me1 - PMHx: 13:20 Anxiety; C-diff; me1 - PSHx: 13:20 Cholecystectomy; Left arm reconstruction; hernia; me1 - Immunization history:: Adult Immunizations up to date. - Infectious Disease History:: Denies. - Social history:: Smoking status: Patient denies any tobacco usage or history of. ROS: 13:31 Constitutional: as per hpi ec2 Exam: 13:31 Constitutional: GEN: NAD Head: atraumatic Eyes: EOMI Ears: External ears are ec2 normal. CV: regular rate LUNGS: no respiratory distress ABD: non-distended SKIN: no evidence of rashes MSK: no evidence of trauma. Neuro: Cranial nerves II through XII intact, strength intact upper extremities, no pronator drift appreciated, normal [id number] Vital Signs: 13:18 BP 130 / 93; Pulse 86; Resp 17; Temp 98.4; Pulse Ox 97% ; Weight 99.79 kg; Height 5 ft. me1 11 in. ; Pain 0/10; 15:47 BP 117 / 85; Pulse 66; Resp 16; Pulse Ox 98% on R/A; iw 13:18 Body Mass Index 30.68 (99.79 kg, 180.34 cm) me1 13:18 Pain Scale: Adult me1 MDM: 13:32 Data reviewed: vital signs, nurses notes. ED course: Patient arrives today d/t concern ec2 for dizziness, nausea along w/ high blood pressure.. ED course: Examination yields intact neurologic exam. Will obtain a cardiac workup, treat the patient's symptoms and reassess. DDx include processes such as electrolyte disturbances, arrhythmia, anemia, dehydration. 13:35 Medical Screening Exam initiated ec2 14:32 ED course: EKG independently reviewed and interpreted by me, shows normal sinus rhythm, ec2 rate of 68, no acute ST segment elevations, intervals are nonactionable.. 15:18 ED course: Metabolic profile reassuring, CBC reassuring, troponin within normal ranges..ec2 15:27 ED course: On reassessment patient is well-appearing in no acute distress. Will ec2 discharge home have the patient follow-up PCP for further workup. No evidence of ACS, no evidence of kidney issues or electrolyte disturbances. Return precautions given.. 03 13:25 Order name: Basic Metabolic Panel; Complete Time: 15:17 ec2 10/06 13:25 Order name: CBC with Diff; Complete Time: 15:17 ec2 10/06 13:25 Order name: Troponin HS; Complete Time: 15:17 ec2 10/06 13:25 Order name: EKG; Complete Time: 13:26 ec2 10/06 13:25 Order name: Cardiac monitoring; Complete Time: 14:30 ec2 10/06 13:25 Order name: EKG - Nurse/Tech; Complete Time: 14:30 ec2 10/06 13:25 Order name: IV Saline Lock; Complete Time: 14:30 ec2 10/06 13:25 Order name: Labs collected and sent; Complete Time: 14:30 ec2 10/06 13:25 Order name: O2 Per Protocol; Complete Time: 14:30 ec2 10/06 13:25 Order name: O2 Sat Monitoring; Complete Time: 14:30 ec2 Administered Medications: 14:56 Drug: metoCLOPramide IVP 10 mg IVP once; over 1 to 2 minutes Route: IVP; Site: right iw antecubital; 14:57 Drug: diphenhydrAMINE IVP 25 mg IVP once Route: IVP; Site: right antecubital; iw Disposition Summary: 10/06/24 15:27 Discharge Ordered Notes: Location: Home ec2 Condition: Stable ec2 Diagnosis - Dizziness and giddiness ec2 - Nausea ec2 Followup: ec2 - With: Private Physician - When: - Reason: Re-evaluation by your physician Discharge Instructions: - Discharge Summary Sheet ec2 - Dizziness, [id number] ec2 Forms: - Work release form iw - Medication Reconciliation Form ec2 - Antibiotic Education ec2 - Prescription Opioid Use ec2 - Patient Portal Instructions ec2 - Leadership Thank You Letter ec2 Prescriptions: - Reglan 10 mg Oral Tablet - take 1 tablet ORAL route every 6 hours take 30 minutes before meals and at ec2 bedtime; 20 tablet; Refills: 0, Product Selection Permitted Signatures: Dispatcher [employer] Brianna Garcia RN RN iw Afshan Maldonado RN RN me1 Lefty Olson MD MD ec2
[2024-10-06 16:19] VITALS: TEMP 98.4
[2024-10-06 16:20] VITALS: BP 117/85; O2SAT 98
--- NOTE | 2024-10-08 08:42 | EKG ---
Test Date: 2024-10-06 Test Time: 14:28:17 Care Transport Nurse: CHRIST MEASUREMENT RESULTS: Intervals: Rate: 68 NH: 154 QRSD: 76 QT: 368 QTc: 391 [place]: P: 52 NH: 154 QRS: 47 T: 4 INTERPRETIVE STATEMENTS: Normal sinus rhythm Septal infarct, age undetermined Abnormal ECG Compared to ECG 12/19/2017 21:49:06 Myocardial infarct finding now present Electronically Signed On 10-08-24 08:37:28 CDT by Abhijeet Adame
== END 2024-10-06 15:48 | disposition home or self-care (01) ==
LOC: ER 13:01
DX: R42 Dizziness and giddiness (principal); R11.0 Nausea
CPT/HCPCS: 93005; 85025; 80048; 36415; 84484; 96375; 96374; 99284; J2765; J1200